=== PATIENT | female | born 1990 | race Caucasian/White ===

== ENCOUNTER 2016-10-13 11:01 | Emergency (ER) | payer SELFPAY ==
[2016-10-13 11:31] VITALS: TEMP 98.6; BMI 31.1
--- NOTE | 2016-10-13 12:06 | EDPRACDOC ---
- General Information Chief Complaint: Eye Problems Stated Complaint: RT EYE SWELLING/PAIN Time Seen by Provider: 10/13/16 11:59 Information Source: Patient Mode Of Arrival: Car Home Medications: Home Medications Sulfamethoxazole/Trimethoprim [Bactrim Ds Tablet] 1 tab PO BID #14 tab 06/02/16 Na Sulfacetm/Prednisol AC [Blephamide Eye Ointment] 0.5 inch OP Q4H #3.5 oint...g. 10/13/16 Allergies/Adverse Reactions: Allergies Allergy/AdvReac Type Severity Reaction Status Date / Time No Known Allergies Allergy Verified 06/02/16 10:40 - History of Present Illness Onset: tuesday HPI: Pt c/o R lower lid swelling and yellow discharge x 4 days. Denies vision changes , earache, sore throat, congestion, cough. Denies contact use. Eye Symptoms: Reports: Discharge, Redness, Stye Symptoms: Moderate Relevent History: Reports: None Cough: Denies: Non-productive, NO, Productive, Clear, Bloody, Brown, Green, White, Yellow, T, BK, HK, CO, S, WK, O Rhinorrhea: Reports: None Associated Signs and Symptoms:: Reports: None ED Past Medical History - History Reviewed Yes Nurses notes reviewed and agree except as marked - Patient Medical History Psychological History: Reports: Depression Systemic History: Reports: Diabetes Surgical History: Reports: Cholecystectomy - Social Medical History Smoking Status: Heavy tobacco smoker (5 or more cigarettes/day or daily pipe/ cigar) ETOH: None Substance Abuse: None EDM Review of Systems - Review of Systems Constitutional: No Symptoms Reported. negative: Fever, Chills, Weakness, Fatigue, Loss of Appetite Eyes: Discharge, Pain, Redness Ears: No Symptoms Reported. negative: Pain, Hearing Loss, Drainage, Ear Pulling Throat: No Symptoms Reported. negative: Pain, Swelling Nose: No Symptoms Reported. negative: Congestion, Bleeding, Discharge, Injection, Swelling, Deformity, Ecchymosis, Tender, Abrasion, Laceration Mouth: No Symptoms Reported. negative: Pain, Drooling Respiratory: No Symptoms Reported. negative: Cough, Brassy Cough, Barky Cough, Shortness of Breath, Wheezing, Hemoptysis Integumentary: No Symptoms Reported. negative: Itching, Rash, Bruising, Wound Allergic/Immunologic: No Symptoms Reported. negative: Hives, Itching Hematologic: No Symptoms Reported. negative: Lymphadenopathy, Easy Bruising, Easy Bleeding Psychiatric: No Symptoms Reported. negative: Anxiety, Depression, Hallucinations, Insomnia, Suicidal - Physical Exam Constitutional: Alert Oriented to: Time, Person, Place Last recorded Vital Signs: Last Vital Signs Temp 98.6 F 10/13/16 11:31 Pulse 89 10/13/16 11:31 Resp 18 10/13/16 11:31 BP 130/58 L 10/13/16 11:31 Pulse Ox 95 10/13/16 11:31 Oxygen Pulse Oxygen Saturation 95 O2 Device Room Air Oxygen Flow Rate Fraction of Inspired Oxygen ( FIO2) - HEENT Head: Normal ( normocephalic) Eye Exam: Other (R lower medial lid with erythema and yellow pustule). negative : Conjunctival Injection, Edema, Pale Conjunctiva Oropharynx: Normal (Pharynx:Moist without exudate,Gums-no swelling) Tympanic Membrane: Normal ENT EAC: Normal Nose: No Symptoms Reported (septum midline) Neck: Normal (FROM, trachea at midline) - Respiratory/Cardiovascular Respiratory: Normal - CTA (BBS clear to auscultation without adventitious sounds ) Cardiovascular: Normal (RRR without murmur, gallop or rub) - Integumentary Skin: Normal, Warm, Dry Lymphatics: Normal (no adenopathy) - Neurologic Memory Impaired: Normal Motor Function: Normal (Normal tone, Pulses 2+ No cyanosis or edema, FROM) Mood Description: Normal Perception: Normal ED Eye Problem Exam Eye Exam: right eye: eyelid inflammation (lower), stye (medial lower lid), left eye: normal inspection, bilateral eye: PERRL, EOMI Sclera: Clear/Quiescent Eye Discharge: Yellow - Differential Diagnosis Hordeolum (sty) Decision Time to Discharge: 12:07 - Departure Disposition: Home Condition: Good Final Diagnosis: Hordeolum of right lower eyelid Qualifiers: Hordeolum type: externum Qualified Code(s): H00.012 - Hordeolum externum right lower eyelid Instructions: Stye (ED) Education/Counseling Given To: Patient Education/Counseling Given Regarding: Diagnosis, Treatment, Follow Up Referrals: None,No Provider [Primary Care Provider] - One Week Dominik Souza MD [Staff Physician] - One Week Erick Dobbs MD [Staff Physician] - One Week Prescriptions: Na Sulfacetm/Prednisol AC [Blephamide Eye Ointment] 0.5 inch OP Q4H #3.5 oint...g. Additional Instructions: Warm compresses to area 5-6 times daily for 15-20 mins each time. Follow up with [facility]/Laborer for worse or different symptoms.
[2016-10-13 12:22] VITALS: BP 126/64; PULSE 86
== END 2016-10-13 12:20 | disposition home or self-care (01) ==
LOC: ED 11:01 → EDMC 12:20
DX: H00.012 Hordeolum externum right lower eyelid (principal)
CPT/HCPCS: 99282